=== PATIENT | male | born 1975 | race Two or more races ===

== ENCOUNTER 2017-12-23 01:38 | Emergency (ER) | payer MEDICAID, SELFPAY ==
[~2017-12-23] VITALS: Ht 170.2 cm; Wt 106.0 kg
[2017-12-23 01:39] VITALS: BP 132/86
== END 2017-12-23 04:10 | disposition home or self-care (01) ==
LOC: ED 04:00
DX: R06.00 Dyspnea, unspecified (principal)
CPT/HCPCS: 71046; 93005; 99284